=== PATIENT | male | born 1990 | race African-American/Black ===

== ENCOUNTER 2016-08-17 14:06 | Emergency (ER) | payer OTHER ==
--- NOTE | 2016-08-17 14:36 | ERNOTE ---
Medical Problem HPI - Narrative Date of Service: 08/17/16 - General Chief Complaint: Diabetes Related Problem Time Seen by Provider: 08/17/16 14:15 Source: patient Exam Limitations: no limitations - Immun/Allergies/Home Medications Immunizations: IMMUNIZATION HX Immunizations Up to Date Yes Allergies/Adverse Reactions: Allergies No Known Allergies Allergy (Unverified 08/17/16 14:14) Home Medications: HOME MEDICATIONS Atorvastatin Calcium [Lipitor] 40 mg PO HS 08/17/16 [Last Taken Unknown] Blood-Glucose Meter [Relion All-in-One] 1 each MC ONCE #1 kit 08/17/16 [Last Taken Unknown] Insulin Aspart [Novolog] 10 units SC TIDWM #2 vial 08/17/16 [Last Taken Unknown] Insulin Glargine,Hum.rec.anlog [Lantus] 10 units SC HS #2 vial 08/17/16 [Last Taken Unknown] Lancing Device/Lancets [Relion Lancing Device] 1 each MC QID #1 kit 08/17/16 [ Last Taken Unknown] Metformin HCl [Glumetza] 500 mg PO BID 08/17/16 [Last Taken Unknown] Syring W-Ndl,Disp,Insul,0.5 ml [Insulin Syringe] 1 each MC QID #100 disp.syrin 08/17/16 [Last Taken Unknown] - History of Present History Narrative: Pt. comes in with c/o feeling hot and thirsty this morning which caused him to think his blood sugar was high. Pt. has been a diabetic since childhood and is dependent on Lantus and humalog but has not had his insulin in at least three days and has not checked his blood sugar in a long time as he does not have any meter or strips. Pt. denies any nausea or vomiting but does have diarrhea. Pt. denies any fevers or recent illness but does state that he occasionally has LUQ abd pain but does not have that currently. Review of Systems - Review of Systems Constitutional: Present: no symptoms reported. Absent: recent illness, fever, chills, weakness, fatigue, malaise EYE: Present: no symptoms reported ENT: Present: no symptoms reported. Absent: nose pain, nose congestion, nasal drainage, sore throat Respiratory: Present: no symptoms reported. Absent: shortness of breath, cough , wheezing Cardiology: Present: no symptoms reported. Absent: chest pain, palpitations, edema Gastrointestinal/Abdominal: Present: diarrhea, abdominal pain - LUQ intermittent. Absent: nausea, vomiting Genitourinary: Present: no symptoms reported Musculoskeletal: Present: no symptoms reported. Absent: back pain, joint pain Neurological: Present: no symptoms reported. Absent: headache, dizziness/light- headedness, numbness, tingling Endocrine: Present: intolerance to heat, increased thirst All Other Systems: All systems neg except as marked - Patient's Past Medical History Patient History - Medical: Diabetes Type 2 Insulin Dependent Patient History - Cardiac/Respiratory: Hypertension, Hyperlipidemia Patient History - Cancer: No Hx of Cancer Patient History - Surgical Procedures: No surgical history - Social History Smoking Status: Never smoker Have you smoked in the past 12 months: No - Immunizations Immunizations Up to Date: Yes Physical Exam - Physical Exam General Appearance: Present: wd/wn, alert, no apparent distress Eye Exam: Normal inspection: bilateral, PERRL: bilateral, EOMI: bilateral Ears, Nose, Throat: Present: normal ENT inspection, normal pharynx Neck: Present: normal inspection, nontender. Absent: lymphadenopathy (R), lymphadenopathy (L) Respiratory: Present: no respiratory distress, normal breath sounds, no accessory muscle use, chest nontender, lungs clear Cardiovascular/Chest: Present: regular rate, rhythm, no murmur, normal peripheral pulses Gastrointestinal/Abdominal: Present: normal bowel sounds, nontender, nondistended, soft, no organomegaly. Absent: tenderness, abnormal bowel sounds , guarding, rebound, McBurney sign, Obturator sign, Mae sign, Psoas sign, mass, hernia Back Exam: Present: normal inspection Extremity Exam: Present: normal inspection Neurological Exam: Present: alert, oriented, no motor/sensory deficits, other - flat affect guarded Skin Exam: Present: normal color, warm/dry. Absent: pallor, skin rash ED Progress - Results and Orders Patient's Lab Results:: I have reviewed the patient's lab results. - Vital Signs Patient's Vital Signs:: I have reviewed the patient's vital signs. Vital Signs: Vital Signs 08/17/16 14:11 Temperature 37.7 C H Pulse Rate 75 Respiratory 18 Rate Blood Pressure 176/86 O2 Sat by Pulse 100 Oximetry - Progress/Reassessment Chief Complaint: Diabetes Related Problem Departure - Departure Clinical Impression: Non-compliant behavior Diabetes Qualifiers: Diabetes mellitus type: type 1 Diabetes mellitus complication status: with hyperglycemia Qualified Code(s): E10.65 - Type 1 diabetes mellitus with hyperglycemia Disposition: Home self-care Condition: Good Instructions: Insulin Treatment for Diabetes, Tips for Eating Away From Home If You Have Diabetes, Hyperglycemia, [id number] Additional Instructions: Please follow up with primary care provider in 2-3 days. Monitor insulin at least 2 times per day. Prescriptions: Blood-Glucose Meter [Relion All-in-One] 1 each ONCE #1 kit Insulin Aspart [Novolog] 10 units SC TIDWM #2 vial Insulin Glargine,Hum.rec.anlog [Lantus] 10 units SC HS #2 vial Lancing Device/Lancets [Relion Lancing Device] 1 each MC QID #1 kit Syring W-Ndl,Disp,Insul,0.5 ml [Insulin Syringe] 1 each MC QID #100 disp.syrin
[2016-08-17 14:41] LABS: Mean Cell Volume 76.9 fl (78-100); Mean Corpuscular Hemoglobin 25.6 pg (27-31); Mean Corpuscular Hgb Conc 33.3 g/dl (32-36); Mean Platelet Volume 10.5 fl (6.0-9.5); Neutrophil # 2.7 K/mm3 (1.3-6.0); Neutrophil % 60.5 % (42-75.0); Platelet Count 221 K/mm3 (150-450); Red Blood Count 5.46 M/mm3 (4.7-6.0); Red Cell Distribution Width 13.4 % (11.5-14.0); White Blood Count 4.4 K/mm3 (4.0-10.5)
[2016-08-17 14:43] LABS: Urine Bilirubin Negative (NEGATIVE); Urine Blood Negative /ul (NEGATIVE); Urine Ketone Negative (NEGATIVE); Urine Nitrite Negative (NEGATIVE); Urine Protein 100 mg/dL (NEGATIVE); Urine Specific Gravity >=1.030 SP.GR. (1.005-1.030); Urine Urobilinogen Normal (NORMAL)
[2016-08-17 14:50] LABS: Urine Appearance Clear; Urine Bacteria TRACE; Urine Color Yellow; Urine RBC None Seen /hpf (0-5); Urine WBC None Seen /hpf (0-5)
[2016-08-17 14:55] LABS: ALT 67 U/L (19-67); AST 26 U/L (0-48); Alkaline Phosphatase * 49 U/L (50-170); Anion Gap 15.7 mmol/L (6.8-13.8); BUN/Creatinine Ratio 11.8 (9.0-21.6); Bilirubin, Total 0.4 mg/dL (0.0-1.1); Blood Urea Nitrogen 12 mg/dL (6-23); Ca. Corrected For Albumin 8.5 mg/dL (8.4-10.2); Calcium * 8.8 mg/dL (7.9-10.9); Carbon Dioxide 24.2 mmol/L (24-32.6); Chloride 101 mmol/L (97-106); Glucose * 246 mg/dL (70-110); Potassium 3.9 mmol/L (3.4-4.6); Sodium 137 mmol/L (132-142); Total Protein 7.7 gm/dL (6.2-8.2)
[2016-08-17 15:01] LABS: Cocaine Ur Negative (NEGATIVE); Urine Barbiturate Negative (NEGATIVE); Urine Benzodiazepines Negative (NEGATIVE); Urine Opiates Negative (NEGATIVE); Urine PCP Negative (NEGATIVE)
[2016-08-17 15:02] LABS: Urine THC Positive (NEGATIVE)
[2016-08-17 15:51] VITALS: BP 169/99
== END 2016-08-17 15:50 | disposition home or self-care (01) ==
LOC: ER 14:06
DX: E10.65 Type 1 diabetes mellitus with hyperglycemia (principal); Z91.14 Patient's other noncompliance with medication regimen; E78.5 Hyperlipidemia, unspecified

== ENCOUNTER 2016-12-24 13:17 | Emergency (ER) | payer OTHER ==
[2016-12-24] MEDS ORDERED: DIAZEPAM 5 MG/ML SYRG IM ONE (13:54)
[2016-12-24] MEDS ORDERED: KETOROLAC TROMETHAMINE 60 MG/2 ML VIAL IM ONE ×2 (13:54→14:05)
[2016-12-24] MEDS ORDERED: DIAZEPAM 5 MG/ML SYRG ONE (14:06)
--- NOTE | 2016-12-24 14:21 | ERNOTE ---
Back Pain ER HPI Date of Service: 12/24/16 Presenting Symptoms: injury/pain to back Time Seen by Provider: 12/24/16 13:38 Source: patient, family, RN notes reviewed Exam Limitations: no limitations Immunizations: IMMUNIZATION HX Immunizations Up to Date Yes History of Influenza Vaccine Yes Hx Pneumococcal Vaccination No Allergies/Adverse Reactions: Allergies No Known Allergies Allergy (Verified 12/24/16 13:36) Home Medications: HOME MEDICATIONS Atorvastatin Calcium [Lipitor] 40 mg PO HS 08/17/16 [Last Taken Unknown] Blood-Glucose Meter [Relion All-in-One] 1 each MC ONCE #1 kit 08/17/16 [Last Taken Unknown] Insulin Aspart [Novolog] 10 units SC TIDWM #2 vial 08/17/16 [Last Taken Unknown] Insulin Glargine,Hum.rec.anlog [Lantus] 10 units SC HS #2 vial 08/17/16 [Last Taken Unknown] Lancing Device/Lancets [Relion Lancing Device] 1 each MC QID #1 kit 08/17/16 [ Last Taken Unknown] Syringe-Needle,Insulin,0.5 ml [Insulin Syringe] 1 each MC QID #100 disp.syrin [Last Taken Unknown] metFORMIN HCL [Glumetza] 500 mg PO BID 08/17/16 [Last Taken Unknown] Cyclobenzaprine HCl [Flexeril] 10 mg PO TID PRN #20 tab 12/24/16 [Last Taken Unknown] Ibuprofen [Motrin] 600 mg PO Q6H PRN #40 tab 12/24/16 [Last Taken Unknown] Narrative: Lucian is a 26 year old male who presents to the ED by private vehicle for back pain that began yesterday. His pain began abruptly without any incident. He denies any injury but does have a very physical job. He has not been taking anything for pain. He has no prior history of back problems. He also reports that he has something stuck in the bottom of his left foot. He is unsure how long it has been there. He is a diabetic and reports that his blood sugars have not been elevated. Timing: Reports: constant Quality/Severity: Reports: severe, aching Location of pain: Reports: lower back, no radiation Activities at Onset: Reports: none Recent Injury?: Reports: no Associated Symptoms: Denies: fever/chills, constipation/incontinence, nausea/ vomiting, problems urinating, difficulty walking, numbess/weakness in legs Prior Treament: Denies: similar symptoms before Review of Systems - Review of Systems Constitutional: Absent: recent illness, fever, chills, malaise EYE: Present: no symptoms reported ENT: Present: no symptoms reported Respiratory: Absent: shortness of breath, cough Cardiology: Absent: chest pain, edema Gastrointestinal/Abdominal: Present: See HPI Genitourinary: Present: See HPI Musculoskeletal: Absent: neck pain, joint pain Skin: Absent: rash, lesions Neurological: Absent: weakness, numbness, tingling Endocrine: Present: no symptoms reported Hematologic/Lymphatic: Present: no symptoms reported Psych: Present: no symptoms reported - Patient's Past Medical History Patient History - Medical: Diabetes Type 2 Insulin Dependent Patient History - Cardiac/Respiratory: Hypertension, Hyperlipidemia Patient History - Cancer: No Hx of Cancer Patient History - Surgical Procedures: No surgical history Patient History - Other: None - Social History Living Situations: home Abuse History: No History of abuse Psych History: No pertinent hx Smoking Status: Current some day smoker Have you smoked in the past 12 months: Yes Alcohol Use: occasionally Drug Use: none - Immunizations Immunizations Up to Date: Yes Hx Pneumococcal Vaccination: No History of Influenza Vaccine: Yes Physical Exam - Physical Exam General Appearance: Present: wd/wn, alert, no apparent distress, obese Neck: Present: normal inspection, nontender, supple, full range of motion Respiratory: Present: no respiratory distress, normal breath sounds, no accessory muscle use, lungs clear Cardiovascular/Chest: Present: regular rate, rhythm, no murmur, normal peripheral pulses Gastrointestinal/Abdominal: Present: nontender, nondistended, soft Back Exam: Present: no CVA tenderness, no vertebral tenderness, decreased range of motion, other - biilateral lumbar region paraspinal muscle tenderness present Extremity Exam: Present: normal inspection, normal range of motion, no edema Neurological Exam: Present: alert, oriented, no motor/sensory deficits, other - flat affect. Absent: normal mood/affect Skin Exam: Present: normal color, warm/dry, other - splinter in left foot ED Progress - Vital Signs Patient's Vital Signs:: I have reviewed the patient's vital signs. Vital Signs: Vital Signs 12/24/16 13:28 Temperature 36.5 C Pulse Rate 76 Respiratory 16 Rate Blood Pressure 174/90 O2 Sat by Pulse 98 Oximetry - Progress/Reassessment Chief Complaint: Back Pain Progress:: Improved Procedures Location: sole of left foot How removed: Forceps Complications: Pt griselda procedure well Departure Clinical Impression: Back pain Qualifiers: Back pain location: low back pain Chronicity: acute Back pain laterality: bilateral Sciatica presence: without sciatica Qualified Code(s): M54.5 - Low back pain Foreign body in foot, left Qualifiers: Encounter type: initial encounter Qualified Code(s): S90.852A - Superficial foreign body, left foot, initial encounter - Departure Disposition: Home self-care Condition: Stable Instructions: Form - Excuse from Work, School, or Physical Activity, Back Pain , Adult, [id number] Additional Instructions: Keep foot clean - apply antibiotic ointment and bandaid as needed Prescriptions: Cyclobenzaprine HCl [Flexeril] 10 mg PO TID PRN #20 tab PRN Reason: MUSCLE SPASMS Ibuprofen [Motrin] 600 mg PO Q6H PRN #40 tab PRN Reason: Pain
[2016-12-24 15:30] VITALS: BP 162/83
== END 2016-12-24 14:45 | disposition home or self-care (01) ==
LOC: ER 13:17
DX: S90.852A Superficial foreign body, left foot, initial encounter (principal); M54.5 Low back pain; E11.9 Type 2 diabetes mellitus without complications; Z79.4 Long term (current) use of insulin; E78.5 Hyperlipidemia, unspecified; F17.200 Nicotine dependence, unspecified, uncomplicated; W45.8XXA Other foreign body or object entering through skin, initial encounter